=== PATIENT | female | born 1960 | race Caucasian/White ===

== ENCOUNTER 2020-08-27 08:00 | Emergency (ER) | payer MEDICAID, OTHER ==
[~2020-08-27] VITALS: Ht 160 cm; Wt 68.0 kg
[2020-08-27 08:07] VITALS: BP 156/84
[2020-08-27] MEDS ORDERED: PROMETHAZINE HCL 25 MG/ML 1ML IM ONE (08:45)
[2020-08-27] MEDS ORDERED: ACETAMINOPHEN 500 MG TAB PO ONE (08:45)
[2020-08-27] MEDS ORDERED: KETOROLAC TROMETH 60MG/2ML VIAL IM ONE (09:45)
== END 2020-08-27 10:07 | disposition home or self-care (01) ==
LOC: ER 08:00
DX: T63.461A Toxic effect of venom of wasps, accidental (unintentional), initial encounter (principal); G43.909 Migraine, unspecified, not intractable, without status migrainosus; Y92.89 Other specified places as the place of occurrence of the external cause
CPT/HCPCS: 70450; 81002; 96372; 99284; J1885; J2550

== ENCOUNTER 2020-10-31 10:04 | Emergency (ER) | payer OTHER ==
[~2020-10-31] VITALS: Ht 160 cm; Wt 63.5 kg
[2020-10-31 11:16] VITALS: BP 176/83
== END 2020-10-31 11:23 | disposition home or self-care (01) ==
LOC: ER 10:04
DX: S61.052A Open bite of left thumb without damage to nail, initial encounter (principal); Z88.2 Allergy status to sulfonamides; Z88.8 Allergy status to other drugs, medicaments and biological substances; W54.0XXA Bitten by dog, initial encounter; Y93.89 Activity, other specified; Y92.89 Other specified places as the place of occurrence of the external cause; Y99.8 Other external cause status